=== PATIENT | male | born 1995 | race Caucasian/White ===

== ENCOUNTER 2019-09-12 13:00 | Emergency (ER) | payer SELFPAY ==
[2019-09-12] MEDS ORDERED: KETOROLAC 60 MG/2 ML VIAL IM STA (13:32)
--- NOTE | 2019-09-12 13:36 | ED Physician Documentation ---
PD HPI LOWER EXT INJURY - Stated complaint Stated Complaint: RT ANKLE INJ - Chief complaint Chief Complaint: Trauma Ext - History obtained from History obtained from: Patient - History of Present Illness PD HPI LOW EXT INJURY LOCATION: Right, Ankle Type of injury: Fall, Twist Where injury occurred: Other ( exercises) Timing - onset: How many hours ago (2), How many days ago Timing - details: Abrupt onset Pain level max: 10 Pain level now: 7 Worsened by: Moving, Palpating Associated symptoms: Swelling. No: Weakness, Numbness - Additional information Additional information: 24-year-old male presents the emergency department with acute onset right ankle pain that occurred this afternoon when he was doing exercise. He reports that he stepped into a small hole and inverted his right ankle. He had immediate swelling on the medial side been unable to bear weight since. He has no history of previous injury. Review of Systems Constitutional: denies: Fever Cardiac: denies: Chest pain / pressure, Palpitations Respiratory: denies: Dyspnea, Cough GI: denies: Abdominal Pain Skin: denies: Rash, Lesions, Abrasion (s) Musculoskeletal: reports: Extremity pain, Joint pain, Joint swelling Neurologic: denies: Generalized weakness, Syncope, Seizure, Headache, Head injury PD PAST MEDICAL HISTORY - Present Medications Home Medications: Ambulatory Orders Medication Instructions Recorded Confirmed Ibuprofen [Ibu] 600 mg PO Q8HR PRN #30 tablet 09/12/19 - Allergies Allergies/Adverse Reactions: Allergies Allergy/AdvReac Type Severity Reaction Status Date / Time No Known Drug Allergies Allergy Verified 09/12/19 13:04 PD ED PE NORMAL - General General: Alert and oriented X 3, No acute distress, Well developed/nourished - Neck Neck: No adenopathy - Cardiac Cardiac: RRR, No murmur - Respiratory Respiratory: No respiratory distress (Swelling and ecchymosis right lateral malleolus. Tenderness of the right malleolus to palpation. Normal flexion extension of the ankle against resistance. 2+ distal DP pulse. 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, No motor deficit, No sensory deficit Results - Vitals Vitals: Vital Signs - 24 hr 09/12/19 13:04 Temperature 36.6 C Heart Rate 84 Respiratory 16 Rate Blood Pressure 138/68 H O2 Saturation 97 Oxygen O2 Source Room air - Rads (name of study) right foot Radiology: Final report received (No acute fracture dislocation) right ankle Radiology: Final report received (No acute fracture dislocation) PD MEDICAL DECISION MAKING - ED course Complexity details: reviewed results, re-evaluated patient, d/w patient ED course: 24 old male presents to the emergency department with acute right ankle pain after rolling his ankle during exercises. X-ray of the foot and ankle are negative for acute pathology. This is likely a grade 5 sprain patient will be placed in an air splint and given crutches. Advised to follow-up with base physician in 1 week. If pain not consistently better or able to bear weight he may need repeat imaging fracture. Departure - Departure Disposition: 01 Home, Self Care Clinical Impression: Ankle sprain Qualifiers: Encounter type: initial encounter Involved ligament of ankle: unspecified ligament Laterality: right Qualified Code(s): S93.401A - Sprain of unspecified ligament of right ankle, initial encounter Condition: Stable Instructions: ED Sprain Ankle W X Ray Prescriptions: Ibuprofen [Ibu] 600 mg PO Q8HR PRN #30 tablet PRN Reason: Pain Comments: Naldo the x-ray of your foot and ankle do not show anything broken. However this looks like a pretty bad ankle sprain. Use the Aircast when out of bed for the next week and the crutches to help you get around. With a mild to moderate ankle sprain I would expect your pain and ability to bear weight to be consistently better over the next week to 10 days. If not you need to have your ankle reimaged to rule out an occult fracture. Follow-up with base physician within 1 week. Return to the emergency department if necessary.
--- NOTE | 2019-09-12 13:46 | XRAY Report ---
PROCEDURE: Foot 3 View RT INDICATIONS: rolled ankle TECHNIQUE: 3 views of the foot were acquired. COMPARISON: None FINDINGS: Bones: No fractures or dislocations. No suspicious bony lesions. Soft tissues: No tibiotalar joint effusion. Achilles tendon appears normal. IMPRESSION: No acute right foot fracture or dislocation. Reviewed by: Clay Brady MD on 09/12/2019 1:45 PM PDT Approved by: Clay Brady MD on 09/12/2019 1:45 PM PDT Station ID: [id number]
--- NOTE | 2019-09-12 13:47 | XRAY Report ---
PROCEDURE: Ankle 3 View RT INDICATIONS: rolled right ankle TECHNIQUE: 3 views of the ankle were acquired. COMPARISON: None FINDINGS: Bones: No fractures or dislocations. Ankle mortise is normally aligned. No suspicious bony lesions . Soft tissues: No tibiotalar joint effusion. Achilles tendon appears normal. Moderate soft tissue s welling over lateral malleolus is seen. IMPRESSION: Lateral ankle soft tissue swelling. No acute fracture or dislocation. Ankle mortise is i ntact. Reviewed by: Clay Brady MD on 09/12/2019 1:45 PM PDT Approved by: Clay Brady MD on 09/12/2019 1:45 PM PDT Station ID: [id number]
[2019-09-12 14:37] VITALS: BP 122/86
== END 2019-09-12 14:37 | disposition home or self-care (01) ==
LOC: ED 13:00
DX: S93.401A Sprain of unspecified ligament of right ankle, initial encounter (principal); X50.1XXA Overexertion from prolonged static or awkward postures, initial encounter; Y93.02 Activity, running; Y92.139 Unspecified place military base as the place of occurrence of the external cause
CPT/HCPCS: 96372; 99283; 99284